=== PATIENT | male | born 1950 | race African-American/Black ===

== ENCOUNTER 2024-10-01 10:58 | Emergency (ER) | payer MEDICARE, OTHER ==
[~2024-10-01] VITALS: Ht 180.3 cm; Wt 108.0 kg
[~2024-10-01 10:58] MED LIST: NITR-87 MT; TAMS-11 MT
[2024-10-01 11:07] VITALS: O2SAT 99
[2024-10-01 14:58] VITALS: BP 180/100; PULSE 96; RESP 18; TEMP 37.05852; O2SAT 99
== END 2024-10-01 15:01 | disposition home or self-care (01) ==
LOC: ER 10:58
DX: Z46.6 Encounter for fitting and adjustment of urinary device (principal); I10 Essential (primary) hypertension
CPT/HCPCS: 99281